=== PATIENT | female | born 1965 | race Caucasian/White ===

== ENCOUNTER 2020-05-09 01:25 | Emergency (ER) | payer OTHER ==
[~2020-05-09] VITALS: Ht 152.4 cm; Wt 48.0 kg
[2020-05-09] MEDS ORDERED: ACETAMINOPHEN 325MG TABLET PO STA (02:36)
[2020-05-09 03:58] LABS: BASOPHILS % 0.6 % (0.0-2.0); EOSINOPHILS % 6.2 % (0.0-5.0); HEMATOCRIT. 36.9 % (36.0-48.0); HEMOGLOBIN. 12.5 g/dL (12.0-16.0); LYMPHOCYTES % 26.6 % (20.0-50.0); MEAN CORPUSCULAR HEMOGLOBIN 31.5 pg (28.0-32.0); MEAN CORPUSCULAR VOLUME 93.4 fL (81.0-99.0); MEAN PLATELET VOLUME 6.9 fl (7.4-10.4); NEUTROPHILS % 62.6 % (40.0-76.0); PLATELET 190 x1000/uL (130-400); RED BLOOD CELL COUNT 3.95 mill/uL (4.2-5.4); RED CELL DISTRIBUTION WIDTH 15.2 % (11.6-14.6)
[2020-05-09 04:04] LABS: CHLORIDE 112 mEq/L (98-107)
[2020-05-09 04:08] LABS: ETHANOL BLOOD 273 mg/dL
[2020-05-09 09:30] VITALS: BP 113/68
== END 2020-05-09 10:30 | disposition home or self-care (01) ==
LOC: EDBD 01:25 → ER 01:25
DX: F10.129 Alcohol abuse with intoxication, unspecified (principal); S50.811A Abrasion of right forearm, initial encounter; R51 Headache; E11.9 Type 2 diabetes mellitus without complications; I10 Essential (primary) hypertension; Y90.8 Blood alcohol level of 240 mg/100 ml or more; Y08.89XA Assault by other specified means, initial encounter; Y07.03 Male partner, perpetrator of maltreatment and neglect; Y93.89 Activity, other specified; Y92.018 Other place in single-family (private) house as the place of occurrence of the external cause
CPT/HCPCS: 36415; 80053; 80320; 85025; 93005; 99285; G0480

== ENCOUNTER 2020-05-13 16:31 | Emergency (ER) | payer OTHER ==
[~2020-05-13] VITALS: Ht 167.6 cm; Wt 64.0 kg
[2020-05-13 16:48] VITALS: BP 126/80
== END 2020-05-13 17:08 | disposition left against medical advice (07) ==
LOC: ER 16:31
DX: M54.9 Dorsalgia, unspecified (principal); Z53.21 Procedure and treatment not carried out due to patient leaving prior to being seen by health care provider